=== PATIENT | male | born 1940 | race Two or more races ===

== ENCOUNTER → 2018-10-01 09:30 | Outpatient (CLI) | payer OTHER ==
[~2018-10-01 09:30] MED LIST: ACYCLOVIR400 MG PO; NEURONTIN300 MG PO
== END | disposition home or self-care (01) ==
LOC: RAD 09:30
DX: I10 Essential (primary) hypertension (principal); M15.0 Primary generalized (osteo)arthritis

== ENCOUNTER 2020-05-25 10:58 | Outpatient (CLI) | payer OTHER | END 2020-05-25 11:06 | disposition home or self-care (01) | LOC: RAD 10:58 | PROVIDERS: ATTEND Ophthalmology | DX: H35.012 Changes in retinal vascular appearance, left eye (principal); Z98.42 Cataract extraction status, left eye ==

== ENCOUNTER 2023-04-11 11:20 | Emergency (ER) | payer OTHER ==
[~2023-04-11] VITALS: Ht 182.9 cm; Wt 81.6 kg
[2023-04-11] MEDS ORDERED: SIMVASTATIN10 MG PO (11:59)
[2023-04-11] MEDS ORDERED: AVAPRO75 MG PO (11:59)
[2023-04-11] MEDS ORDERED: AMLODIPINE-OLM1 EAC2 PO (12:00)
[2023-04-11 14:18] LABS: HEMATOCRIT 40.3 % (39.0-48.0); HEMOGLOBIN 13.7 g/dL (13-16.00); MEAN CELL VOLUME 91.7 fL (80.0-100.00); MEAN CORPUSCULAR HEMOGLOBIN 31.1 pg (27.00-32.0); MEAN CORPUSCULAR HGB CONC 33.9 g/dl (32.0-36.0); PLATELET COUNT 173 K/uL (150-450); RED CELL DISTRIBUTION WIDTH 14.6 % (11.5-14.5)
[2023-04-11 14:53] LABS: ALBUMIN 3.8 gm/dL (3.4-5.0); BILIRUBIN TOTAL 0.38 mg/dL (0.3-1.2); CALCIUM 9.2 mg/dL (8.5-10.1); CREATININE SERUM 0.89 mg/dL (0.70-1.30); GFR 81.44; GLOBULINA 4.5 G/DL (2.4-3.5); POTASSIUM 4.11 mEq/L (3.5-5.1); TOTAL PROTEIN 8.3 gm/dL (6.4-8.2)
== END 2023-04-11 17:36 | disposition designated cancer center or children's hospital (05) ==
LOC: ER 11:20
PROVIDERS: Emergency Medicine
DX: I44.2 Atrioventricular block, complete (principal); R00.2 Palpitations; I10 Essential (primary) hypertension